=== PATIENT | female | born 1985 | race Caucasian/White ===

== ENCOUNTER 2024-06-17 23:39 | Emergency (ER) | payer MEDICAID ==
[~2024-06-17] VITALS: Ht 162.6 cm; Wt 78.0 kg
[2024-06-17 23:42] VITALS: TEMP 36.9; O2SAT 99
[2024-06-18 01:20] VITALS: O2SAT 98
[2024-06-18] MEDS: ONDANSETRON HCL 4MG/2ML INJ IV STA (01:31)
[2024-06-18] MEDS: MORPHINE SULFATE 4 MG/ML INJ (FOR IV/IM USE) IV STA (01:31)
[2024-06-18 01:41] LABS: BASOPHILS % 0.3 % (0.0-2.0); EOSINOPHILS % 0.4 % (0.0-5.0); HEMATOCRIT. 30.9 % (36.0-48.0); HEMOGLOBIN. 9.4 g/dL (12.0-16.0); LYMPHOCYTES % 12.3 % (20.0-50.0); MEAN CORPUSCULAR HEMOGLOBIN 20.9 pg (28.0-32.0); MEAN CORPUSCULAR HGB CONC 30.4 g/dL (31.0-37.0); MEAN CORPUSCULAR VOLUME 68.8 fL (81.0-99.0); MEAN PLATELET VOLUME 8.4 fl (7.4-10.4); PLATELET 384 x1000/uL (130-400); RED BLOOD CELL COUNT 4.49 mill/uL (4.2-5.4); RED CELL DISTRIBUTION WIDTH 17.5 % (11.6-14.6); WHITE BLOOD COUNT 14.9 x1000/uL (4.5-11.0)
[2024-06-18 01:46] LABS: ADD RBC MORPHOLOGY YES; DIFFERENTIAL COMMENT 1
[2024-06-18 02:47] LABS: CHLORIDE 99 mEq/L (98-107); POTASSIUM 3.6 mEq/L (3.5-5.1); SODIUM 136 mEq/L (136-145)
[2024-06-18 02:48] LABS: CALCIUM 9.3 mg/dL (8.7-10.4); CARBON DIOXIDE 29 mEq/L (21-32)
[2024-06-18 02:53] LABS: CREATININE 0.9 mg/dL (0.6-1.0); GLUCOSE 311 mg/dL (70-105); UREA NITROGEN BLOOD 14 mg/dL (9-23)
[2024-06-18 03:00] LABS: ALANINE AMINOTRANSFERASE 8 IU/L (10-49); ALBUMIN 4.3 g/dL (3.2-4.8); ASPARTATE AMINOTRANSFERASE 10 IU/L (<34); BILIRUBIN DIRECT < 0.1 mg/dL (<=3.0); BILIRUBIN TOTAL 0.3 mg/dL (0.1-1.0); PROTEIN TOTAL 8.3 g/dL (6.0-8.3)
[2024-06-18 03:39] LABS: HCG SCREEN NEGATIVE
[2024-06-18] MEDS ORDERED: NAPR-1176 MT (04:37)
[2024-06-18] MEDS ORDERED: CYCL10TA21 MT (04:37)
[2024-06-18 04:38] VITALS: BP 133/85; PULSE 93; RESP 16
[2024-06-18] MEDS: KETOROLAC 15MG/ML VIAL IV ONE (04:38)
[2024-06-18 07:04] LABS: PLATELET ESTIMATE NORMAL
[2024-06-18 07:05] LABS: HYPOCHROMASIA 1+; MICROCYTOSIS 2+
[2024-06-18] MEDS: IOHEXOL-300 100 ML BOTTLE ONE (07:36)
[2024-06-18] MEDS ORDERED: IOHEXOL-300 100 ML BOTTLE ONE (16:19)
== END 2024-06-18 07:47 | disposition home or self-care (01) ==
LOC: ER 23:39
DX: S16.1XXA Strain of muscle, fascia and tendon at neck level, initial encounter (principal); S20.219A Contusion of unspecified front wall of thorax, initial encounter; S30.1XXA Contusion of abdominal wall, initial encounter; M54.6 Pain in thoracic spine; E11.65 Type 2 diabetes mellitus with hyperglycemia; V89.2XXA Person injured in unspecified motor-vehicle accident, traffic, initial encounter; Y93.89 Activity, other specified; Y92.89 Other specified places as the place of occurrence of the external cause; Y99.8 Other external cause status
CPT/HCPCS: 99285; 80076; 80048; 81025; 84703; 85025; 36415; 71045; 73130; 71270; 72125; 74178; 96374; 96375; Q9967; J1885; J2405; J2270; Z7610